=== PATIENT | female | born 1940 | race Caucasian/White ===

== ENCOUNTER 2020-08-01 07:51 | Day surgery (SDC) | payer OTHER ==
[~2020-08-01] VITALS: Wt 57.0 kg
[~2020-08-01 07:51] MED LIST: ANASTROZOLE1 M2 PO; ANASTROZOLE5 GM; ASPI81CH PO; Advil200 M1 PO; DYMISTA NASAL S23 GM NS; IPRA.03NI; PEDIATRIC10 MCG/11 PO; VIT1CAPS12 PO
[2020-08-01] MEDS ORDERED: Aspir 8181 MG PO (09:04)
--- NOTE | 2020-08-01 11:30 | NUR ---
[facility] A&O. left groin site soft and nontender. dressing dry and intact. PT and DP 1+.
[2020-08-01] MEDS ORDERED: CLOP75 PO (12:00)
--- NOTE | 2020-08-01 14:20 | NUR ---
PATIENT UP TO BATHROOM. DRESSED BY SELF. RIGHT GROIN SITE REMAINS SOFT AND NONTENDER. DRESSING DRY AND INTACT. PATIENT VEBALIZED UNDERSTANDING OF DISCHARGE INSTRUCTIONS AND PRECAUTIONS. IV DCED WITH CATHETER INTACT. PATIENT DISCHRGED VIA WHEELCHAIR. TRANSFERRED TO CAR WITH FRIEND VIA WHEEL CHAIR.
== END 2020-08-01 16:00 | disposition home or self-care (01) ==
LOC: MHTC 07:51
DX: I70.213 Atherosclerosis of native arteries of extremities with intermittent claudication, bilateral legs (principal); Z87.891 Personal history of nicotine dependence; Z88.8 Allergy status to other drugs, medicaments and biological substances
CPT/HCPCS: 37225; 75625; 75716; 75774; 85347; 99152; 99153; C1714; C1760; C1769; C1884; C1887; C1894; C2623; J0360; J1644; J2250; J3010; J7030; J7050; Q9967

== ENCOUNTER → 2020-12-31 | Outpatient (CLI) | payer OTHER ==
[~2020-12-31] MED LIST changes: +Aspir 8181 MG PO; +CLOP75 PO
== END | disposition home or self-care (01) ==
LOC: LAB SHORT 09:52 → LAB 09:52
DX: S01.05XA Open bite of scalp, initial encounter (principal)
CPT/HCPCS: 88305

== ENCOUNTER → 2022-03-25 | Outpatient (CLI) | payer OTHER | LOC: LAB SHORT 08:13 → LAB 08:13 → PLD 08:13 | DX: D48.5 Neoplasm of uncertain behavior of skin (principal) | CPT/HCPCS: 88305 ==

== ENCOUNTER → 2022-04-29 | Outpatient (CLI) | payer OTHER | END | disposition home or self-care (01) | LOC: PLD 08:26 → LAB SHORT 08:26 | DX: C44.619 Basal cell carcinoma of skin of left upper limb, including shoulder (principal) | CPT/HCPCS: 88305 ==

== ENCOUNTER → 2022-09-15 | Outpatient (CLI) | payer OTHER | END | disposition home or self-care (01) | LOC: LAB 15:10 → LAB SHORT 15:10 | DX: R82.998 Other abnormal findings in urine (principal) | CPT/HCPCS: 87077; 87086; 87186 ==

== ENCOUNTER → 2022-11-24 | Outpatient (CLI) | payer OTHER | END | disposition home or self-care (01) | LOC: LAB SHORT 08:36 → PLD 08:36 | DX: D48.5 Neoplasm of uncertain behavior of skin (principal) | CPT/HCPCS: 88305 ==

== ENCOUNTER → 2023-01-19 | Outpatient (CLI) | payer OTHER | LOC: PLD 15:23 → LAB SHORT 15:23 | DX: C44.629 Squamous cell carcinoma of skin of left upper limb, including shoulder (principal) | CPT/HCPCS: 88305 ==